=== PATIENT | female | born 1970 | race Caucasian/White ===

== ENCOUNTER 2023-01-14 15:36 | Emergency (ER) | payer SELFPAY ==
[~2023-01-14] VITALS: Ht 177.8 cm; Wt 75.0 kg
[2023-01-14 15:40] VITALS: TEMP 97.7
[2023-01-14 16:10] VITALS: BP 104/90; PULSE 66
== END 2023-01-14 16:33 | disposition home or self-care (01) ==
LOC: COL.ER 15:36
DX: S83.005A Unspecified dislocation of left patella, initial encounter (principal); M23.92 Unspecified internal derangement of left knee; F17.290 Nicotine dependence, other tobacco product, uncomplicated; Z28.310 Unvaccinated for COVID-19; W01.0XXA Fall on same level from slipping, tripping and stumbling without subsequent striking against object, initial encounter; Y92.511 Restaurant or cafe as the place of occurrence of the external cause
CPT/HCPCS: 31869; L1830

== ENCOUNTER 2024-04-30 18:23 | Emergency (ER) | payer SELFPAY ==
[~2024-04-30] VITALS: Ht 177.8 cm; Wt 75.0 kg
[~2024-04-30 18:23] MED LIST: NORCO 325 MG-51 TAB PO
[2024-04-30 18:27] VITALS: BP 144/95; TEMP 97.1
[2024-04-30 19:00] VITALS: PULSE 85
== END 2024-04-30 19:01 | disposition home or self-care (01) ==
LOC: COL.ER 18:23
DX: S61.211A Laceration without foreign body of left index finger without damage to nail, initial encounter (principal); F17.200 Nicotine dependence, unspecified, uncomplicated; W26.9XXA Contact with unspecified sharp object(s), initial encounter